=== PATIENT | female | born 1965 | race Caucasian/White ===

== ENCOUNTER 2017-05-17 10:29 | Emergency (ER) | payer OTHER ==
[~2017-05-17] VITALS: Ht 152.4 cm; Wt 86.0 kg
[2017-05-17] MEDS ORDERED: KETOROLAC 60MG/2ML VIAL IM ONE (17:15)
[2017-05-17 19:10] VITALS: BP 114/74
== END 2017-05-17 19:23 | disposition home or self-care (01) ==
LOC: ER 17:06
DX: M79.604 Pain in right leg (principal); I10 Essential (primary) hypertension; E78.00 Pure hypercholesterolemia, unspecified; E11.9 Type 2 diabetes mellitus without complications
CPT/HCPCS: 73590; 93971; 96372; 99284; J1885; Z7610